=== PATIENT | male | born 1945 | race Asian ===

== ENCOUNTER → 2016-12-04 | Outpatient (CLI) | payer BC | LOC: MW.CHIM 08:37 | PROVIDERS: ATTEND Internal Medicine | DX: I10 Essential (primary) hypertension (principal) | CPT/HCPCS: 36415; 80053; 80061; 85025 ==

== ENCOUNTER 2017-02-10 07:44 | Emergency (ER) | payer BC ==
--- NOTE | 2017-02-10 08:22 | EDM.PDOC ---
ED HPI GENERAL MEDICAL PROBLEM - General Chief Complaint: Skin Complaint Stated Complaint: HEAD PAIN Time Seen by Provider: 02/10/17 07:58 Source of Information: Reports: Patient History Limitations: Reports: No Limitations - History of Present Illness INITIAL COMMENTS - FREE TEXT/NARRATIVE: History of present illness: [Patient scratched his head and has developed redness and tenderness in areas one on top of his head and one on the base of his right neck. There is no drainage and he denies any fevers, chills, headache, nausea or vomiting.] Review of systems: As per history of present illness and below otherwise all systems reviewed and negative. Past medical history: As per history of present illness and as reviewed below otherwise noncontributory. Surgical history: As per history of present illness and as reviewed below otherwise noncontributory. Social history: No reported history of drug or alcohol abuse. Family history: As per history of present illness and as reviewed below otherwise noncontributory. Physical exam: General: Well developed, well nourished in NAD HEENT: There are 2 small scratches one on top of his head and with the base of the right neck that have scabbed over. One on top of his head has some erythema and tenderness to palpation., normocephalic, pupils reactive, negative for conjunctival pallor or scleral icterus, mucous membranes moist, throat clear, neck supple, nontender, trachea midline. Lungs: Clear to auscultation, breath sounds equal bilaterally, chest nontender. Heart: S1S2, regular, negative for clicks, rubs, or JVD. Abdomen: Soft, nondistended, nontender. Negative for masses or hepatosplenomegaly. Negative for costovertebral tenderness. Pelvis: Stable nontender. Genitourinary: Deferred. Rectal: Deferred. Extremities: Atraumatic, negative for cords or calf pain. Neurovascular unremarkable. Neuro: Awake, alert, oriented. Cranial nerves II through XII unremarkable. Cerebellum unremarkable. Motor and sensory unremarkable throughout. Exam nonfocal. Diagnostics: [] Therapeutics: [] Impression: []Cellulitis scalp Plan: []Keflex 4 times a day for 7 days warm soaks return if symptoms worsen or change Definitive disposition and diagnosis as appropriate pending reevaluation and review of above. scalp Pain Score (Numeric/FACES): 10 - Related Data Allergies Allergy/AdvReac Type Severity Reaction Status Date / Time adhesive tape Allergy Rash Verified 02/10/17 07:55 latex Allergy Rash Verified 02/10/17 07:55 povidone-iodine Allergy Rash Verified 02/10/17 07:55 [From Betadine] soap [From Betadine] Allergy Rash Verified 02/10/17 07:55 dust Allergy Sneezing Uncoded 02/10/17 07:55 seafood Allergy Rash Uncoded 02/10/17 07:55 Home Meds: Home Meds Losartan/Hydrochlorothiazide [Losartan-HCTZ 100-12.5 MG] 1 tab PO DAILY [History] Aspirin [Adult Low Dose Aspirin EC] 81 mg PO DAILY #30 tablet. 08/31/15 [Rx] Cephalexin [Keflex] 500 mg PO Q6HR #28 cap 02/10/17 [Rx] Past Medical History - Past Health History Medical/Surgical History: Denies Medical/Surgical History HEENT History: Reports: Cataract, Impaired Vision Other HEENT History: Had lasar surgery done on cataracts in [facility] Cardiovascular History: Reports: Hypertension Respiratory History: Reports: Asthma Gastrointestinal History: Reports: GERD Genitourinary History: Reports: Prostate Disorder Other Genitourinary History: 2007, says he had TURP, and has been recentlly checked by Dr Rodgers a couple months ago Musculoskeletal History: Reports: Arthritis Other Musculoskeletal History: 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 was given Silvadene cream in ER . Family says he also has allergic reaction to chemicals use for cleaning,,25H - Infectious Disease History Infectious Disease History: Reports: Chicken Pox Other Infectious Disease History: has history of boils - Past Surgical History Head Surgeries/Procedures: Reports: None GI Surgical History: Reports: None Oncologic Surgical History: Reports: None Social & Family History - Family History Family Medical History: Noncontributory Musculoskeletal: Reports: Arthritis Neurological: Reports: CVA - Tobacco Use Smoking Status *Q: Never Smoker Years of Tobacco use: 20 Packs/Tins Daily: 2 Second Hand Smoke Exposure: No - Caffeine Use Caffeine Use: Reports: Tea - Alcohol Use Days Per Week of Alcohol Use: 0 Number of Drinks Per Day: 4 Total Drinks Per Week: 0 - Recreational Drug Use Recreational Drug Use: No - Living Situation & Occupation Living situation: Reports: Occupation: Retired ED ROS GENERAL - Review of Systems Review Of Systems: See Below (See history of present illness) ED EXAM, SKIN/RASH Exam: See Below (See history of present illness) Course - Vital Signs Last Recorded V/S: Last Vital Signs Temp 36.1 C 02/10/17 07:56 Pulse 62 02/10/17 07:56 Resp 18 02/10/17 07:56 BP 189/82 H 02/10/17 07:56 Pulse Ox 98 02/10/17 07:56 Departure - Departure Time of Disposition: 08:21 Disposition: Home, Self-Care 01 Condition: Good Clinical Impression: Cellulitis of head or scalp - Discharge Information Prescriptions: Cephalexin [Keflex] 500 mg PO Q6HR #28 cap Forms: ED Department Discharge Additional Instructions: The following information is given to patients seen in the emergency department who are being discharged to home. This information is to outline your options for follow-up care. We provide all patients seen in our emergency department with a follow-up referral. The need for follow-up, as well as the timing and circumstances, are variable depending upon the specifics of your emergency department visit. If you don't have a primary care physician on staff, we will provide you with a referral. We always advise you to contact your personal physician following an emergency department visit to inform them of the circumstance of the visit and for follow-up with them and/or the need for any referrals to a consulting specialist. The emergency department will also refer you to a specialist when appropriate. This referral assures that you have the opportunity for follow-up care with a specialist. All of these measure are taken in an effort to provide you with optimal care, which includes your follow-up. Under all circumstances we always encourage you to contact your private physician who remains a resource for coordinating your care. When calling for follow-up care, please make the office aware that this follow-up is from your recent emergency room visit. If for any reason you are refused follow-up, please contact the [facility] Emergency Department at and asked to speak to the emergency department charge nurse. Take Keflex 4 times a day for one week warm compresses to the area of tenderness return if symptoms worsen or change follow-up with primary care as needed [facility] [address] [place] [id number]
== END 2017-02-10 08:32 | disposition home or self-care (01) ==
LOC: MW.ED 07:44
CPT/HCPCS: 99283

== ENCOUNTER 2017-11-16 12:04 | Emergency (ER) | payer BC ==
--- NOTE | 2017-11-16 12:32 | EDM.PDOC ---
ED HPI GENERAL MEDICAL PROBLEM - General Chief Complaint: ENT Problem Stated Complaint: ALLERGIES Time Seen by Provider: 11/16/17 12:30 Source of Information: Reports: Patient History Limitations: Reports: No Limitations - History of Present Illness INITIAL COMMENTS - FREE TEXT/NARRATIVE: HISTORY AND PHYSICAL: [] 72-year-old gentleman presenting with allergies high he's been taking Benadryl [id number] without any relief History of Present Illness: []2 years ago that this gentleman had the same problem this is been going on for several days Review of Systems: As per history of present illness and below otherwise all systems reviewed and negative. Past medical history: As per history of present illness and as reviewed below otherwise noncontributory. Surgical history: As per history of present illness and as reviewed below otherwise noncontributory. Social history: No reported history of drug or alcohol abuse. Family history: As per history of present illness and as reviewed below otherwise noncontributory. Physical exam: Alert and oriented gentleman has difficulty with understanding his speech is able to speak in full sentences without shortness of breath HEENT: Atraumatic, normocehpalic, pupils reactive, negative for conjunctival pallor or scleral icterus, mucous membranes moist, throat clear, neck supple, nontender, trachea midline. Edema noted to both his eyes there is some erythema associated with this. He is rubbing his eyes there sclerae erythematous watery Lungs: Clear to auscultation, breath sounds equal bilaterally, chest non tender. Heart: S1S2, regular, negative for clicks, rubs, or JVD. Abdomen: Soft, nondistended, nontender. Negative for masses or hepatossplenmegaly. Negative for costovertebral tenderness. Pelvis: Stable nontender. Genitourinary: Deferred. Rectal: Deferred Extremities: Atraumatic, negative for cords or calf pain. Neurovascular unremarkable. Neuro: Awake, alert, oriented. Cranial nerves II through XII unremarkable. Cerebellum unremarkable. Motor and sensory unremarkable throughout. Exam nonfocal. Diagnostics: [] Therapeutics: [] Impression: []Allergies Plan: []Discharge Medrol Dosepak Follow-up with your primary care Return to the emergency room as directed Definitive disposition and diagnosis as appropriate pending reevaluation and review of above. Onset: Sudden, Gradual Duration: Day(s): Location: Reports: Face Quality: Reports: Same as Previous Episode Severity: Moderate Improves with: Reports: None Worsens with: Reports: None Associated Symptoms: Reports: No Other Symptoms Right Knee Pain Score (Numeric/FACES): 5 - Related Data Allergies Allergy/AdvReac Type Severity Reaction Status Date / Time adhesive tape Allergy Rash Verified 11/16/17 12:21 latex Allergy Rash Verified 11/16/17 12:21 povidone-iodine Allergy Rash Verified 11/16/17 12:21 [From Betadine] soap [From Betadine] Allergy Rash Verified 11/16/17 12:21 dust Allergy Sneezing Uncoded 02/10/17 07:55 seafood Allergy Rash Uncoded 02/10/17 07:55 Home Meds: Home Meds Losartan/Hydrochlorothiazide [Losartan-HCTZ 100-12.5 MG] 1 tab PO DAILY [History] amLODIPine [Norvasc] 5 mg PO DAILY 11/16/17 [History] methylPREDNISolone [Medrol] 4 mg PO ASDIRECTED #1 dosepk 11/16/17 [Rx] Past Medical History - Past Health History Medical/Surgical History: Denies Medical/Surgical History HEENT History: Reports: Cataract, Impaired Vision Other HEENT History: Had lasar surgery done on cataracts in [facility] Cardiovascular History: Reports: Hypertension Respiratory History: Reports: Asthma Gastrointestinal History: Reports: GERD Genitourinary History: Reports: Prostate Disorder Other Genitourinary History: 2007, says he had TURP, and has been recentlly checked by Dr Rodgers a couple months ago Musculoskeletal History: Reports: Arthritis Other Musculoskeletal History: 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 was given Silvadene cream in ER . Family says he also has allergic reaction to chemicals use for cleaning,,25H - Infectious Disease History Infectious Disease History: Reports: Chicken Pox Other Infectious Disease History: has history of boils - Past Surgical History Head Surgeries/Procedures: Reports: None GI Surgical History: Reports: None Oncologic Surgical History: Reports: None Social & Family History - Family History Family Medical History: Noncontributory Musculoskeletal: Reports: Arthritis Neurological: Reports: CVA - Tobacco Use Smoking Status *Q: Never Smoker Years of Tobacco use: 20 Packs/Tins Daily: 2 Second Hand Smoke Exposure: No - Caffeine Use Caffeine Use: Reports: Tea - Alcohol Use Days Per Week of Alcohol Use: 0 Number of Drinks Per Day: 4 Total Drinks Per Week: 0 - Recreational Drug Use Recreational Drug Use: No - Living Situation & Occupation Living situation: Reports: Occupation: Retired ED ROS ENT - Review of Systems Review Of Systems: ROS reveals no pertinent complaints other than HPI. ED EXAM, ENT - Physical Exam Exam: See Below (see dictation) Course - Vital Signs Last Recorded V/S: Last Vital Signs Temp 36.8 C 11/16/17 12:13 Pulse 74 11/16/17 12:13 Resp 16 11/16/17 12:13 BP 168/72 H 11/16/17 12:13 Pulse Ox 99 11/16/17 12:13 Departure - Departure Time of Disposition: 13:20 Disposition: Home, Self-Care 01 Condition: Good Clinical Impression: Environmental allergies - Discharge Information Prescriptions: methylPREDNISolone [Medrol] 4 mg PO ASDIRECTED #1 dosepk Referrals: PCP,Unknown [Primary Care Provider] - Forms: ED Department Discharge Additional Instructions: The following information is given to patients seen in the emergency department who are being discharged to home. This information is to outline your options for follow-up care. We provide all patients seen in our emergency department with a follow-up referral. The need for follow-up, as well as the timing and circumstances, are variable depending upon the specifics of your emergency department visit. If you don't have a primary care physician on staff, we will provide you with a referral. We always advise you to contact your personal physician following an emergency department visit to inform them of the circumstance of the visit and for follow-up with them and/or the need for any referrals to a consulting specialist. The emergency department will also refer you to a specialist when appropriate. This referral assures that you have the opportunity for followup care with a specialist. All of these measure are taken in an effort to provide you with optimal care, which includes your followup. Under all circumstances we always encourage you to contact your private physician who remains a resource for coordinating your care. When calling for followup care, please make the office aware that this follow-up is from your recent emergency room visit. If for any reason you are refused follow-up, please contact the [facility] emergency department at and asked to speak to the emergency department charge nurse. You have allergies causing the swelling to your eyes The steroids will help you to reduce the swelling Prescription has been sent to [facility] allergy medicine daily
[2017-11-16] MEDS ORDERED: methylPREDNISolone 4 MG Tab 21 Tab/Dosepak PO ONE (13:22)
[2017-11-16] MEDS ORDERED: predniSONE 20 MG Tab PO ONE (13:29)
[2017-11-16 13:42] VITALS: BP 162/74
== END 2017-11-16 14:39 | disposition home or self-care (01) ==
LOC: MW.ED 12:04
DX: J30.2 Other seasonal allergic rhinitis (principal); I10 Essential (primary) hypertension; Z91.040 Latex allergy status; Z91.013 Allergy to seafood; Z88.8 Allergy status to other drugs, medicaments and biological substances; Z79.899 Other long term (current) drug therapy
CPT/HCPCS: 99283; A9270